=== PATIENT | female | born 1950 | race Caucasian/White ===

== ENCOUNTER 2017-01-02 16:39 | Emergency (ER) | payer MEDICAID ==
[~2017-01-02] VITALS: Wt 58.5 kg
[~2017-01-02 16:39] MED LIST: ALBU18HF INHALATION; GUAI118L94 PO; IBUP-1542 PO
--- NOTE | 2017-01-02 19:05 | RADRPT ---
PROCEDURE: XR Foot. CLINICAL INDICATION: Left foot pain. TECHNIQUE: Three views of the left foot are available for review. COMPARISON: None available FINDINGS: No acute fracture or dislocation is seen. Joint spaces are intact. Bony mineralization is normal. Soft tissues are unremarkable. No radiopaque foreign body is identified. Moderate size posterior and inferior calcaneal spurs. Multiple sub centimeter venous vascular calcifications in the medial ankle. IMPRESSION: 1. No evidence of fracture, dislocation or bone destruction. 2. Moderate sized posterior and inferior calcaneal spurs. RPTAT: QQ .Alex Copeland MD, Date Time Electronically viewed and signed by .Alex Copeland MD, on 01/02/2017 19:05 .M/
[2017-01-02] MEDS ORDERED: ACETAMINOPHEN 500 MG TAB PO STA (19:42)
[2017-01-02] MEDS ORDERED: ACET500C5 PO (19:43)
[2017-01-02] MEDS ORDERED: BEN25 PO (19:47)
[2017-01-02 20:10] VITALS: BP 188/84; PULSE 62; RESP 17; TEMP 97.8
--- NOTE | 2017-01-02 20:21 | ERD ---
ER Documentation Chief Complaint Date/Time DATE: 01/02/17 TIME: 20:12 Chief Complaint rash on left ankle wound since november not worsen since then HPI Patient is a 66-year-old female with history of hypertension and diabetes who presents to the emergency department for concerns of a rash to the left ankle medial ankle. Patient states she has had this rash for many years now. The rash is consistent with brown discoloration. Patient reports itching, worse at night. She denies any redness, warmth or swelling. Patient states 1 week ago she was walking outside when she had ankle twist injury. Patient states she did scrape her lateral ankle on the ground. Patient did have a small wound which patient states is taking a while to heal. Patient reports pain to the anterior aspect of her foot. Patient denies being seen for this pain in the past. Patient reports pain when ambulating. Patient denies any fevers, chills , nausea, vomiting, chest pain, shortness of breath or loss consciousness. Patient denied any head injury at the time of the injury. She denies any numbness or tingling. Patient denies any previous injuries to the affected extremity. ROS All systems reviewed and are negative except as per history of present illness. Medications Home Meds Active Scripts Diphenhydramine Hcl* (Benadryl*) 25 Mg Cap, 25 MG PO Q6, #10 CAP Prov:BARRETT BUNN PA-C 01/02/17 Acetaminophen* (Tylophen*) 500 Mg Capsule, 1 CAP PO Q6H Y for PAIN AND OR ELEVATED TEMP, #20 CAP Prov:BARRETT BUNN PA-C 01/02/17 Guaifenesin-Codeine Phosphate* (Guaifenesin* with Codeine Liq) 120 Ml Liquid, 5 ML PO Q4H for COUGH, #120 ML Prov:YOGESH COREA [employer]LE [employer]IVER O[employer]ATOR [employer] 05/16/15 Albuterol Sulfate* (Ventolin HFA*) 18 Gm Hfa.aer.ad, 2 PUFF INHALATION Q4H, #1 INHALER Prov:YOGESH COREA. [employer]LE DRIVER OPER[employer] 05/16/15 Ibuprofen* (Motrin*) 600 Mg Tab, 600 MG PO Q6H Y for PAIN AND OR ELEVATED TEMP, #30 TAB Prov:YOGESH COREA [employer]LE [employer]IVER OPER[employer] 05/16/15 Allergies Allergies: Coded Allergies: No Known Allergy (Unverified , 05/16/15) PMhx/Soc History of Surgery: No Anesthesia Reaction: No Hx Neurological Disorder: No Hx Respiratory Disorders: No Hx Cardiac Disorders: Yes (HTN, HYPERLIPIDS) Hx Psychiatric Problems: No Hx Miscellaneous Medical Probl: Yes (DM) Hx Alcohol Use: No Hx Substance Use: No Hx Tobacco Use: No Smoking Status: Never smoker Physical Exam Vitals Vital Signs Date Time Temp Pulse Resp B/P Pulse Ox O2 Delivery O2 Flow Rate FiO2 01/02/17 20:10 97.8 62 17 188/84 98 Room Air 01/02/17 16:42 98.1 73 18 158/80 99 Physical Exam GENERAL: Well-developed, well-nourished female. Appears in no acute distress. HEAD: Normocephalic, atraumatic. EYES: Pupils are equally reactive bilaterally. EOMs grossly intact. No conjunctival erythema. ENT: Moist mucous membranes. No uvula deviation. No kissing tonsils. NECK: Supple. No meningismus. Normal range of motion of the neck. LUNG: Clear to auscultation bilaterally. No rhonchi, wheezing, rales or coarse breath sounds. HEART: Regular rate and rhythm. No murmurs, rubs or gallops. EXTREMITIES: Equal pulses bilaterally. No peripheral clubbing, cyanosis or edema. No unilateral leg swelling. NEUROLOGIC: Alert and oriented. Moving all four extremities without any difficulty. Normal speech. Steady gait. SKIN: Chronic venous stasis discoloration noted on the patient's bilateral lower extremities. No open wounds noted. Patient does have a small scabbed lesion on the lateral aspect of her left ankle. No active bleeding or discharge. No warmth, erythema noted. LEFT ANKLE: No obvious deformity, erythema, ecchymosis. Some swelling noted to the patient's anterior foot and lateral foot. Skin intact. Tender to palpation of the anterior foot and lateral foot. Normal range of motion of the ankle and all digits. Normal range of motion of the knee. Nontender palpation of the knee, tibia/fibula, ankle, fifth metatarsal. Sensation intact to light touch. Neurovascularly intact. (Able to plantarflex, dorsiflex, ian foot, invert foot, raise big toe.) 2+ DP and DT pulses. Results 24 hrs Current Medications Medications (Trade) Dose Ordered Sig/Torri Route PRN Reason Start Time Stop Time Status Last Admin Dose Admin Acetaminophen (Tylenol Tab) 500 mg ONCE STAT PO 01/02/17 19:42 01/02/17 19:46 DC 01/02/17 19:53 Procedures/MDM ED COURSE: The patient was stable throughout ED course. I kept the patient and/or family informed of laboratory and diagnostic imaging results throughout the ED course. DIAGNOSTIC IMAGING: Read by radiologist. DIAGNOSTIC IMAGING REPORT Patient: SARAI GRAHAM : 1950 Age: 66 Sex: F MR #: [id number] [facility] #: [id number] DOS: 01/02/17 175 Ordering MD: BARRETT BUNN PA-C Location: [facility]TE Room/Bed: PROCEDURE: XR Foot. CLINICAL INDICATION: Left foot pain. TECHNIQUE: Three views of the left foot are available for review. COMPARISON: None available FINDINGS: No acute fracture or dislocation is seen. Joint spaces are intact. Bony mineralization is normal. Soft tissues are unremarkable. No radiopaque foreign body is identified. Moderate size posterior and inferior calcaneal spurs. Multiple sub centimeter venous vascular calcifications in the medial ankle. IMPRESSION: 1. No evidence of fracture, dislocation or bone destruction. 2. Moderate sized posterior and inferior calcaneal spurs. RPTAT: QQ .Alex Copeland MD, Date Time Electronically viewed and signed by .Alex Copeland MD, on 01/02/2017 19: 05 .M/ CC: BARRETT BUNN PA-C MEDICAL DECISION MAKING: This is a 58-year-old female who presents emergency department for concerns of generalized discoloration to her legs and left foot pain. Vital signs were reviewed. Patient was afebrile. Xrays showed 1. No evidence of fracture, dislocation or bone destruction. 2. Moderate sized posterior and inferior calcaneal spurs Given these findings, the patient's presentation is most consistent with venous stasis dermatitis and calcaneal spurs. I have a much lower clinical concern for cellulitis, abscess, open fracture, ankle dislocation, tibia fracture, fibula fracture, ankle fracture, tarsal bone fracture, metatarsal fracture, phalangeal fracture, stress fracture, lisfranc injury, gout, septic joint, reactive arthritis, DVT, compartment syndrome, diabetic neuropathy or pes planus. At this time, unable to rule out any tendon and ligament injuries. PRESCRIPTIONS: Tylenol DISCHARGE: At this time, patient is stable for discharge and outpatient management.DM medication compliance strongly encouraged. RICE therapy and ROM exercises were advised to avoid stiffness. I have instructed the patient to follow-up with his/ her primary care physician in 1-2 days. I have discussed with the patient the possibility of needing to see an orthopedic rn for further workup and imaging if the pain persists. I have instructed the patient to promptly return to the ER for any new or worsening symptoms including increased pain, swelling, redness, warmth or fever. The patient and/or family expressed understanding of and agreement with this plan. All questions were answered. Home care instructions were provided. Patients blood pressure was elevated (>120/80) but appears stable without evidence of hypertensive emergency, hypertensive urgency or end-organ failure. I had discussion with the patient about the risks of hypertension. I have advised the patient to follow up with his/her primary care physician for outpatient monitoring and treatment for hypertension in 2-3 days. I have instructed the patient to return to the ER for any new or worsening symptoms including chest pain, shortness of breath, headache, blurred vision, confusion, nausea, vomiting or LOC. Disclaimer: Inadvertent spelling and grammatical errors are likely due to EHR/ dictation software use and do not reflect on the overall quality of patient care. Also, please note that the electronic time recorded on this note does not necessarily reflect the actual time of the patient encounter. Departure Diagnosis: Primary Impression: Calcaneal spur, left Additional Impression: Venous stasis Condition: Stable Patient Instructions: Understanding Chronic Venous Insufficiency, Your Diabetes Foot Care Program Referrals: COMMUNITY CLINICS YOU HAVE RECEIVED A MEDICAL SCREENING EXAM AND THE RESULTS INDICATE THAT YOU DO NOT HAVE A CONDITION THAT REQUIRES URGENT TREATMENT IN THE EMERGENCY DEPARTMENT. FURTHER EVALUATION AND TREATMENT OF YOUR CONDITION CAN WAIT UNTIL YOU ARE SEEN IN YOUR DOCTORS OFFICE WITHIN THE NEXT 1-2 DAYS. IT IS YOUR RESPONSIBILITY TO MAKE AN APPOINTMENT FOR FOLOW-UP CARE. IF YOU HAVE A PRIMARY DOCTOR --you should call your primary doctor and schedule an appointment IF YOU DO NOT HAVE A PRIMARY DOCTOR YOU CAN CALL OUR PHYSICIAN REFERRAL HOTLINE AT IF YOU CAN NOT AFFORD TO SEE A PHYSICIAN YOU CAN CHOSE FROM THE FOLLOWING [facility] [address] [facility] [address] [facility] [address] [facility] [address] [facility] [address] [facility]. [facility] [address] [facility]. [facility] YOU HAVE RECEIVED A MEDICAL SCREENING EXAM AND THE RESULTS INDICATE THAT YOU DO NOT HAVE A CONDITION THAT REQUIRES URGENT TREATMENT IN THE EMERGENCY DEPARTMENT. FURTHER EVALUATION AND TREATMENT OF YOUR CONDITION CAN WAIT UNTIL YOU ARE SEEN IN YOUR DOCTORS OFFICE WITHIN THE NEXT 1-2 DAYS. IT IS YOUR RESPONSIBILITY TO MAKE AN APPOINTMENT FOR FOLOW-UP CARE. IF YOU HAVE A PRIMARY DOCTOR --you should call your primary doctor and schedule and appointment IF YOU DO NOT HAVE A PRIMARY DOCTOR YOU CAN CALL OUR PHYSICIAN REFERRAL HOTLINE AT . IF YOU CAN NOT AFFORD TO SEE A PHYSICIAN YOU CAN CHOSE FROM THE FOLLOWING [facility]: [facility] [address] [place] [address] [facility] [address] [place] [address] [facility] [address] [place] [address] [facility] Hours: Mon-Fri 9:00 AM - 5:00 PM Additional Instructions: Call your primary care doctor TOMORROW for an appointment during the next 1-2 days.See the doctor sooner or return here if your condition worsens before your appointment time. BARRETT BUNN PA-C Jan 02, 2017 20:21
== END 2017-01-02 20:10 | disposition home or self-care (01) ==
LOC: FTE 16:39
DX: M77.32 Calcaneal spur, left foot (principal); I87.2 Venous insufficiency (chronic) (peripheral); I10 Essential (primary) hypertension; E11.9 Type 2 diabetes mellitus without complications
CPT/HCPCS: 73630; Z7502; Z7610

== ENCOUNTER 2017-08-18 00:18 | Emergency (ER) | END 2017-08-18 04:40 | disposition home or self-care (01) ==